=== PATIENT | male | born 1985 | race Caucasian/White ===

== ENCOUNTER 2018-01-02 08:03 | Emergency (ER) | payer OTHER ==
[2018-01-02 08:12] VITALS: BMI 34.8
[2018-01-02] MEDS ORDERED: Sodium Chloride 0.9% 1,000 ML IV STA (08:45)
--- NOTE | 2018-01-02 08:55 | ED PDOC ---
HPI: Abdomen Time Seen by Provider: 01/02/18 08:24 Chief Complaint (Nursing): Abdominal Pain Chief Complaint (Provider): abdominal pain, diarrhea and vomiting History Per: Patient History/Exam Limitations: no limitations Onset/Duration Of Symptoms: Days (x4) Outside of [place] travel?: No Current Symptoms Are (Timing): Still Present Quality Of Discomfort: Cramping Associated Symptoms: Vomiting, Diarrhea. denies: Fever, Chills Additional Complaint(s): David Machuca is a 32 year old male, with no significant past medical history, who presents to the emergency department complaining of a crampy abdominal pain associated with multiple episodes of nonbloody and watery diarrhea onset for x4 days. Patient also reports a non bloody vomiting episode yesterday and states the pain is over the whole abdomen but mostly on epigastric area. Patient further states he feels dizzy at times and took Omeprazole without relief. He denies any fever, chest pain, shortness of breath , recent travel, sick contacts or recent antibiotic use. No further medical complaints. PMD: None Past Medical History Reviewed: Historical Data, Nursing Documentation, Vital Signs Vital Signs: Last Vital Signs Temp 98 F 01/02/18 12:46 Pulse 76 01/02/18 12:46 Resp 18 01/02/18 12:46 BP 122/70 01/02/18 12:46 Pulse Ox 100 01/02/18 12:46 - Medical History PMH: Gastritis - Surgical History Surgical History: Appendectomy - Family History Family History: States: Unknown Family Hx - Social History Ex-Smoker (has not smoked in the last 12 months): Yes Alcohol: Social Drugs: Denies - Home Medications Home Medications: Ambulatory Orders Medication Instructions Recorded Oseltamivir [Tamiflu] 75 mg PO BID #10 cap 05/12/15 Dicyclomine [Dicyclomine HCl] 10 mg PO TID #15 cap 01/02/18 - Allergies Allergies/Adverse Reactions: Allergies Allergy/AdvReac Type Severity Reaction Status Date / Time chlorpheniramine Allergy RASH Verified 01/02/18 08:22 Review of Systems ROS Statement: Except As Marked, All Systems Reviewed And Found Negative Constitutional: Negative for: Fever Cardiovascular: Negative for: Chest Pain Respiratory: Negative for: Shortness of Breath Gastrointestinal: Positive for: Vomiting (non bloody), Abdominal Pain, Diarrhea (watery and non bloody) Neurological: Positive for: Dizziness Physical Exam - Reviewed Nursing Documentation Reviewed: Yes Vital Signs Reviewed: Yes - Physical Exam Appears: Positive for: No Acute Distress Head Exam: Positive for: ATRAUMATIC, NORMAL INSPECTION, NORMOCEPHALIC Skin: Positive for: Normal Color, Warm, Dry Eye Exam: Positive for: Normal appearance, EOMI, PERRL ENT: Positive for: Normal ENT Inspection Neck: Positive for: Painless ROM Cardiovascular/Chest: Positive for: Regular Rate, Rhythm. Negative for: Murmur Respiratory: Positive for: Normal Breath Sounds. Negative for: Respiratory Distress Gastrointestinal/Abdominal: Positive for: Tenderness (mild epigastric) Back: Positive for: Normal Inspection Extremity: Positive for: Normal ROM (upper and lower extremities). Negative for : Deformity, Swelling Neurologic/Psych: Positive for: Alert, Oriented. Negative for: Motor/Sensory Deficits - Laboratory Results Result Diagrams: 01/02/18 09:08 01/02/18 09:08 - ECG O2 Sat by Pulse Oximetry: 98 (RA) Pulse Ox Interpretation: Normal - Progress Re-evaluation Time: 12:30 Condition: Re-examined, Improved Medical Decision Making Medical Decision Making: Time: 08:24 Initial Impression: abdominal pain, diarrhea and vomiting. Differential includes acute gastroenteritis, pancreatitis, and infectious diarrhea Initial Plan: --CMP --Lipase --CBC w/ differential --Bentyl 10 mg PO --Sodium Chloride 1,000 ml IV 1,000 mls/hr --Reevaluation ----- Scribe Attestation: Documented by Emil Knapp, acting as a scribe for Memo Valencia MD. Provider Scribe Attestation: All medical record entries made by the Scribe were at my direction and personally dictated by me. I have reviewed the chart and agree that the record accurately reflects my personal performance of the history, physical exam, medical decision making, and the department course for this patient. I have also personally directed, reviewed, and agree with the discharge instructions and disposition. Disposition - Clinical Impression Clinical Impression: Diarrhea - Patient ED Disposition Is Patient to be Admitted: No Doctor Will See Patient In The: Office Counseled Patient/Family Regarding: Studies Performed, Diagnosis, Need For Followup - Disposition Referrals: [facility] [Outside] Disposition: Routine/Home Disposition Time: 12:30 Condition: GOOD Additional Instructions: Return for worsening. Follow up with your PCP in 2-3 days. Drink plenty of fluids. Prescriptions: Dicyclomine [Dicyclomine HCl] 10 mg PO TID #15 cap Instructions: Diarrhea in Adolescents and Adults Print Language: SERBIAN
[2018-01-02 09:26] LABS: BASO % 0.5 % (0.0-2.0); EOS # 0.2 K/uL (0.0-0.7); EOS % 2.2 % (0.0-4.0); LYMPH # 2.4 K/uL (1.0-4.3); MEAN CELL VOLUME 82.5 fl (80.0-94.0); MEAN CORPUSCULAR HEMOGLOBIN 28.1 pg (27.0-31.0); MEAN PLATELET VOLUME 8.6 fl (7.2-11.7); MONO # 0.7 K/uL (0.0-0.8); NEUT # 6.2 K/uL (1.8-7.0); NEUT % 65.3 % (50.0-75.0); NRBC % 0.1 % (0.0-0.0); RBC 5.35 Mil/uL (4.40-5.90); RED CELL DISTRIBUTION WIDTH 13.4 % (11.5-14.5); WHITE BLOOD COUNT 9.4 K/uL (4.8-10.8)
[2018-01-02 09:36] LABS: ALB/GLOB RATIO 1.4 (1.0-2.1); ALBUMIN 4.8 g/dL (3.5-5.0); ALT/SGPT 45 U/L (21-72); AST/SGOT 32 U/L (17-59); GFR AFRICAN-AMERICAN > 60; GFR NON-AFRICAN AMERICAN > 60; LIPASE 80 U/L (23-300)
[2018-01-02 09:43] LABS: BLOOD UREA NITROGEN 18 mg/dl (9-20); CALCIUM 9.4 mg/dL (8.4-10.2)
[2018-01-02 12:47] VITALS: BP 122/70; PULSE 76; RESP 18; TEMP 98
[2018-01-03 16:11] VITALS: O2SAT 98
== END 2018-01-02 12:46 | disposition home or self-care (01) ==
LOC: H.ER 08:03
DX: R19.7 Diarrhea, unspecified (principal)
CPT/HCPCS: 80053; 83690; 85025; 96360; 99284; J7030

== ENCOUNTER 2018-01-05 10:20 | Emergency (ER) | payer SELFPAY ==
[2018-01-05 10:20] VITALS: BMI 34.8
[2018-01-05 10:32] VITALS: TEMP 98.5
[2018-01-05] MEDS ORDERED: Sodium Chloride 0.9% 1,000 ML IV STA (10:59)
--- NOTE | 2018-01-05 11:04 | ED PDOC ---
HPI: Abdomen Time Seen by Provider: 01/05/18 10:37 Chief Complaint (Nursing): Abdominal Pain Chief Complaint (Provider): Abdominal Pain History Per: Patient History/Exam Limitations: no limitations Onset/Duration Of Symptoms: Days (x8) Location Of Pain/Discomfort: RLQ, LUQ Associated Symptoms: Vomiting, Diarrhea Additional Complaint(s): 32 y/o male with a PMHx of Gastritis presents to the ED complaining of constant abdominal pain, onset 8 days ago. Patient reports pain is associated with 1 episode of vomiting approximately 5 days ago but has had none since and non- bloody diarrhea. Patient was here on January 02 for the same symptoms and discharged home with Bentyl. Patient has been taking it with no relief. Denies fever and urinary symptoms. Past Medical History Reviewed: Historical Data, Nursing Documentation, Vital Signs Vital Signs: Last Vital Signs Temp 98.5 F 01/05/18 10:32 Pulse 70 01/05/18 16:30 Resp 18 01/05/18 16:30 BP 125/88 01/05/18 16:30 Pulse Ox 98 01/05/18 16:30 - Medical History PMH: Gastritis - Surgical History Surgical History: Appendectomy - Family History Family History: States: Unknown Family Hx - Home Medications Home Medications: Ambulatory Orders Medication Instructions Recorded Oseltamivir [Tamiflu] 75 mg PO BID #10 cap 05/12/15 Dicyclomine [Dicyclomine HCl] 10 mg PO TID #15 cap 01/02/18 Ciprofloxacin [Cipro] 500 mg PO BID #6 tab 01/05/18 - Allergies Allergies/Adverse Reactions: Allergies Allergy/AdvReac Type Severity Reaction Status Date / Time chlorpheniramine Allergy RASH Verified 01/02/18 08:22 Review of Systems ROS Statement: Except As Marked, All Systems Reviewed And Found Negative Constitutional: Negative for: Fever Gastrointestinal: Positive for: Vomiting (1 episode), Abdominal Pain, Diarrhea ( non-bloody) Genitourinary Male: Negative for: Dysuria, Frequency, Hematuria Physical Exam - Reviewed Nursing Documentation Reviewed: Yes Vital Signs Reviewed: Yes - Physical Exam Appears: Positive for: No Acute Distress Head Exam: Positive for: ATRAUMATIC, NORMOCEPHALIC Skin: Positive for: Normal Color, Warm, Dry Eye Exam: Positive for: Normal appearance, EOMI, PERRL ENT: Positive for: Normal ENT Inspection Neck: Positive for: Normal, Painless ROM Cardiovascular/Chest: Positive for: Regular Rate, Rhythm. Negative for: Murmur Respiratory: Positive for: Normal Breath Sounds. Negative for: Respiratory Distress Gastrointestinal/Abdominal: Positive for: Normal Exam, Soft, Tenderness ( Bilateral lower quadrant tenderness (left > right)) Back: Positive for: Normal Inspection. Negative for: L CVA Tenderness, R CVA Tenderness Extremity: Positive for: Normal ROM. Negative for: Pedal Edema, Deformity Neurologic/Psych: Positive for: Alert, Oriented. Negative for: Motor/Sensory Deficits - Laboratory Results Result Diagrams: 01/05/18 11:25 01/05/18 11:25 - ECG O2 Sat by Pulse Oximetry: 97 (RA) Pulse Ox Interpretation: Normal Medical Decision Making Medical Decision Making: Time: 1100 Plan: -- CT Abd/Pelvis IV Contrast -- CMP -- ED Urine Dipstick -- CBC with differentials -- Sodium Chloride IV 1000 mls/hr -- Stool Culture -- Urinalysis Time: 1354 CT ABD/PELVIS RESULTS FINDINGS: LOWER THORAX: The visualized lungs are clear. LIVER: Moderate hepatomegaly and diffuse fatty liver. No gross lesion or ductal dilatation. GALLBLADDER AND BILE DUCTS: No calcified gallstones. PANCREAS: Normal in size with homogeneous enhancement. No gross lesion or ductal dilatation. SPLEEN: Mild splenomegaly. ADRENALS: No discrete nodule. KIDNEYS AND URETERS: Both kidneys are normal in size with homogeneous enhancement. No hydronephrosis or mass. There is a 2.4 cm simple cyst in the lower pole of the right kidney. VASCULATURE: No aortic aneurysm. BOWEL: The proximal small bowel loops are normal in caliber. There is mild dilatation of fluid-filled distal small bowel loops. There is scattered colonic diverticulosis without CT evidence for acute diverticulitis. No bowel wall thickening. APPENDIX: Normal appendix. PERITONEUM: No free fluid. No free air. LYMPH NODES: No enlarged lymph nodes. BLADDER: Decompressed. REPRODUCTIVE: The prostate gland is normal in size. BONES: No acute fracture. Within normal limits for the patient's age. Age OTHER FINDINGS: None. IMPRESSION: Age mild dilatation of fluid-filled distal small bowel loops could be related to nonspecific infectious/ inflammatory enteritis. Scattered colonic diverticulosis without CT evidence for acute diverticulitis. Moderate hepatomegaly and fatty liver. Mild splenomegaly. 2.4 cm simple cyst in the lower pole of the right kidney. Time: 1453 Plan: -- Cipro 400 mg in 200 ml Scribe Attestation: Documented by Angela Rolle acting as a scribe for Dr. Janett Joe MD. Provider Scribe Attestation: All medical record entries made by the Scribe were at my direction and personally dictated by me. I have reviewed the chart and agree that the record accurately reflects my personal performance of the history, physical exam, medical decision making, and the department course for this patient. I have also personally directed, reviewed, and agree with the discharge instructions and disposition. Disposition - Clinical Impression Clinical Impression: Enteritis - Disposition Referrals: [facility] [Outside] Disposition: Routine/Home Disposition Time: 16:30 Condition: STABLE Additional Instructions: CONTINUE BENTYL PRESCRIBED. Prescriptions: Ciprofloxacin [Cipro] 500 mg PO BID #6 tab Instructions: Diarrhea in Adolescents and Adults Forms: [facility] (Maori) Print Language: NIGERIEN
[2018-01-05 11:36] LABS: BASO # 0.1 K/uL (0.0-0.2); BASO % 0.6 % (0.0-2.0); EOS # 0.2 K/uL (0.0-0.7); EOS % 2.4 % (0.0-4.0); HEMOGLOBIN 15.5 g/dL (12.0-18.0); LYMPH # 2.1 K/uL (1.0-4.3); LYMPH % 20.8 % (20.0-40.0); MEAN CELL VOLUME 83.6 fl (80.0-94.0); MEAN CORPUSCULAR HEMOGLOBIN 27.9 pg (27.0-31.0); MEAN CORPUSCULAR HGB CONC 33.4 g/dL (33.0-37.0); MEAN PLATELET VOLUME 8.7 fl (7.2-11.7); MONO # 0.5 K/uL (0.0-0.8); MONO % 5.3 % (0.0-10.0); NEUT # 7.1 K/uL (1.8-7.0); NEUT % 70.9 % (50.0-75.0); RBC 5.54 Mil/uL (4.40-5.90); RED CELL DISTRIBUTION WIDTH 13.8 % (11.5-14.5)
[2018-01-05 11:40] LABS: SQUAMOUS EPITHIAL < 1 /hpf (0-5); URINE BILIRUBIN NEGATIVE (NEGATIVE); URINE BLOOD MODERATE (NEGATIVE); URINE CLARITY SLIGHTY-CLOUDY (Clear); URINE COLOR YELLOW (YELLOW); URINE GLUCOSE (UA) NEG (Normal); URINE LEUKOCYTE ESTERASE NEG Leu/uL (Negative); URINE PROTEIN 30 mg/dL (NEGATIVE); URINE UROBILINOGEN 0.2-1.0 mg/dL (0.2-1.0)
[2018-01-05 11:48] LABS: ALB/GLOB RATIO 1.4 (1.0-2.1); ALBUMIN 4.9 g/dL (3.5-5.0); ALT/SGPT 80 U/L (21-72); AST/SGOT 45 U/L (17-59); BLOOD UREA NITROGEN 12 mg/dl (9-20); CALCIUM 9.7 mg/dL (8.4-10.2); GFR AFRICAN-AMERICAN > 60; GFR NON-AFRICAN AMERICAN > 60
[2018-01-05] MEDS ORDERED: Iohexol 300 100 ML IJ ONE (12:37)
[2018-01-05] MEDS ORDERED: Sodium Chloride 0.9% 50 ML IV ONE (12:37)
--- NOTE | 2018-01-05 13:55 | CT ---
Date of service: 01/05/2018 PROCEDURE: CT Abdomen and Pelvis with contrast HISTORY: Abdominal pain and diarrhea COMPARISON: None. TECHNIQUE: CT scan of the abdomen and pelvis was performed of the administration of intravenous contrast. Oral contrast was not administered. Coronal and sagittal reformatted images were obtained. Contrast dose: 100 mL Omnipaque 300 Radiation dose: Total exam DLP = 1100.90 mGy-cm. This CT exam was performed using one or more of the following dose reduction techniques: Automated exposure control, adjustment of the mA and/or kV according to patient size, and/or use of iterative reconstruction technique. FINDINGS: LOWER THORAX: The visualized lungs are clear. LIVER: Moderate hepatomegaly and diffuse fatty liver. No gross lesion or ductal dilatation. GALLBLADDER AND BILE DUCTS: No calcified gallstones. PANCREAS: Normal in size with homogeneous enhancement. No gross lesion or ductal dilatation. SPLEEN: Mild splenomegaly. ADRENALS: No discrete nodule. KIDNEYS AND URETERS: Both kidneys are normal in size with homogeneous enhancement. No hydronephrosis or mass. There is a 2.4 cm simple cyst in the lower pole of the right kidney. VASCULATURE: No aortic aneurysm. BOWEL: The proximal small bowel loops are normal in caliber. There is mild dilatation of fluid-filled distal small bowel loops. There is scattered colonic diverticulosis without CT evidence for acute diverticulitis. No bowel wall thickening. APPENDIX: Normal appendix. PERITONEUM: No free fluid. No free air. LYMPH NODES: No enlarged lymph nodes. BLADDER: Decompressed. REPRODUCTIVE: The prostate gland is normal in size. BONES: No acute fracture. Within normal limits for the patient's age. Age OTHER FINDINGS: None. IMPRESSION: Age mild dilatation of fluid-filled distal small bowel loops could be related to nonspecific infectious/ inflammatory enteritis. Scattered colonic diverticulosis without CT evidence for acute diverticulitis. Moderate hepatomegaly and fatty liver. Mild splenomegaly. 2.4 cm simple cyst in the lower pole of the right kidney.
[2018-01-05] MEDS ORDERED: Ciprofloxacin 400mg/200ml D5W 400 MG/200 ML BAG IV STA (14:53)
[2018-01-05] MEDS ORDERED: Ciprofloxacin 400mg/200ml D5W 400 MG/200 ML BAG IVPB ONE (14:58)
[2018-01-05 16:52] VITALS: BP 125/88; PULSE 70; RESP 18
[2018-01-05 17:38] VITALS: O2SAT 97
== END 2018-01-05 16:52 | disposition home or self-care (01) ==
LOC: H.ER 10:20
DX: K52.9 Noninfective gastroenteritis and colitis, unspecified (principal); N28.1 Cyst of kidney, acquired; K57.30 Diverticulosis of large intestine without perforation or abscess without bleeding; K76.0 Fatty (change of) liver, not elsewhere classified
CPT/HCPCS: 74177; 80053; 81003; 85025; 99283; J0744; J7030; Q9967